=== PATIENT | male | born 1975 | race Caucasian/White ===

== ENCOUNTER 2020-04-11 09:28 | Emergency (ER) | payer OTHER ==
[~2020-04-11] VITALS: Ht 170.2 cm; Wt 72.6 kg
[~2020-04-11 09:28] MED LIST: ALEVE220 MG PO; CARAFATE 1 GM TA1 G1 PO; HYDROCODONE-AP1 EAC6 PO; KEFLEX250 M1 PO; NOHOMEMEDICATIONS; NORCO 5-325 TA1 EAC1 PO; PENICILLIN VK250 MG PO; ULTRAM 50MG TAB50 MG PO
[2020-04-11] MEDS ORDERED: NAPROSYN500 M1 PO (09:43)
[2020-04-11] MEDS ORDERED: NORCO 5-325 TA1 EAC2 PO (10:02)
[2020-04-11] MEDS ORDERED: FLEXERIL PO (10:02)
[2020-04-11 11:55] VITALS: BP 101/65
== END 2020-04-11 11:55 | disposition home or self-care (01) ==
LOC: M.ERS 09:28
DX: M54.6 Pain in thoracic spine (principal); Z87.891 Personal history of nicotine dependence